=== PATIENT | female | born 1935 | race Caucasian/White ===

== ENCOUNTER 2018-08-13 14:55 | Inpatient (IN) ==
[2018-08-13] MEDS: Aspirin Enteric Coated 81 MG Tablet PO SCH (18:02)
[2018-08-13] MEDS: *HR* OxyCODONE/APAP 5/325 TABLET PO PRN ×2 (18:03→22:30)
[2018-08-14 05:44] LABS: Basophils % 0.4 %; Eosinophils # 0.2 K/mcL (0.0-0.6); Eosinophils % 3.9 %; Hematocrit 27.4 % (35.3-44.9); Hemoglobin 8.8 g/dL (11.5-15.4); Immature Granulocytes % 0.4 % (0-4); Lymphocytes # 1.3 K/mcL (0.6-4.6); Lymphocytes % 26.7 %; Mean Corpuscular HGB Conc 32.1 g/dL (31.6-35.5); Mean Corpuscular Volume 87.3 fL (83.0-100.0); Mean Platelet Volume 8.8 fL (9.4-12.4); Monocytes # 0.4 K/mcL (0.0-1.3); Monocytes % 7.9 %; Neutrophils # 2.9 K/mcL (1.6-8.9); Platelet Count 232 K/mcL (140-400); Red Blood Count 3.14 M/mcL (3.82-4.97); Red Cell Distribution Width 14.2 % (11.5-14.5); Segmented Neutrophils % 60.7 %; White Blood Count 4.8 K/mcL (4.3-11.1)
[2018-08-14 05:48] LABS: INR 1.1; Prothrombin Time 12.3 Seconds (9.4-12.1)
[2018-08-14 05:51] LABS: Activated Partial Thrombo Time 29.8 Seconds (26.0-36.0)
[2018-08-14] MEDS: *HR* OxyCODONE/APAP 5/325 TABLET PO PRN ×3 (06:42→21:28)
[2018-08-14] MEDS: Levothyroxine 25 MCG TABLET PO SCH (06:42)
[2018-08-14] MEDS: carBAMazepine 200 MG TABLET PO SCH (08:02)
[2018-08-14] MEDS: Isosorbide MONOnitrate (24 HR) 60 MG TAB.ER.24H PO SCH (11:45)
[2018-08-14] MEDS: Aspirin Enteric Coated 81 MG Tablet PO SCH (16:10)
--- NOTE | 2018-08-14 17:19 | Internal Med History&Physical ---
Date of Encounter: 08/14/18 Time of Encounter: 16:45 Assessment and Plan (1) Recurrent falls Current visit: No Status: Acute PT and OT evaluation with ongoing intervention will be done. (2) CAD (coronary artery disease) Current visit: No Status: Chronic Continue aspirin, Plavix, and metoprolol Qualifiers: Coronary Disease-Associated Artery/Lesion type: [place] artery [place] vs. transplanted heart: [place] heart Associated angina: without angina Qualified Code(s): I25.10 - Atherosclerotic heart disease of [place] coronary artery without angina pectoris (3) CKD (chronic kidney disease) stage 3, GFR 30-59 ml/min Current visit: No Status: Chronic Monitor renal indices. (4) Hypothyroidism Current visit: No Status: Chronic TSH was normal at 1.105 on 08/09/2018. Continue present dose Synthroid. Qualifiers: Hypothyroidism type: unspecified Qualified Code(s): E03.9 - Hypothyroidism, unspecified (5) Anemia Current visit: No Status: Chronic Anemia testing will be ordered. I explained to her that chronic kidney disease is likely significantly contributing Qualifiers: Anemia type: unspecified type Qualified Code(s): D64.9 - Anemia, unspecified (6) Hypertension Current visit: No Status: Chronic Continue metoprolol. Qualifiers: Hypertension type: essential hypertension Qualified Code(s): I10 - Essential (primary) hypertension Internal Medicine - H&P: HPI Chief complaint: Left hip hematoma Admitted From: Hospital to Hospital Transfer Plans for Post Hospital Care: Home History of present illness: Ms. Gilbert is a 83 year old female who was discharged to [facility] swing bed after a August 09 [facility] stay following a fall at home. She sustained a left superficial parietal hematoma and left thigh hematoma. She was treated nonsurgically. She was discharged to swing bed for rehabilitation therapy prior to returning to independent living. She states she does not use a cane or walker on ambulation. She reports 4 falls over the last 18 months. She sustained a left humerus fracture at the time of the first fall January 2017. She had previous left total shoulder replacement 2009. Orthopedic history is significant otherwise for bilateral carpal tunnel surgery repair remotely. She denies gout or other bone joint or muscle disorders. She reports the 2 most recent falls were due to slipping/stumbling with her feet or balance loss on turning. Past Med Surg Social Fam HX - Past Medical History Medical history: atrial fibrillation, coronary artery disease, GERD, hyperlipidemia, hypertension, myocardial infarction, seizures, thyroid disease, other Additional medical history: Patient states it has been many years since last seizure. Psychiatric history: depression - Past Surgical History Surgical History: angioplasty/stent, appendectomy, cataract, cholecystectomy, hysterectomy, orthopedic, other, sinus surgery, other Additional surgical history: Left humerus fx with ORIF - Social History Smoking Status: Never smoker Smokeless Tobacco Status: No Alcohol use: none Drug use: none - Family History Father Adopted: No Family Member Ethnicity: Non- Living Status: Hx Family Neurologic Disorders: Yes (Parkinson's disease) Brother Family Member Ethnicity: Non- Living Status: Hx Family Cardiac Disorders: Yes ([place], CVA) Sister Family Member Ethnicity: Non- Living Status: Hx Family Cardiac Disorders: Yes (CVA, CAD, HTN) Mother Adopted: No Family Member Ethnicity: Non- Living Status: Hx Family Cardiac Disorders: Yes Hx Family Endocrine Disorder: Yes (DM T2) Internal Medicine - H&P: Meds Aspirin [Lo-Dose Aspirin EC] 81 mg PO 1600 08/09/18 [History] Clopidogrel [Plavix] 75 mg PO DAILY 08/09/18 [History] Isosorbide MONOnitrate [Isosorbide Mononitrate ER] 120 mg PO 1200 08/09/18 [History] Levothyroxine [Synthroid] 50 mcg PO DAILY 08/09/18 [History] Metoprolol Tartrate [Lopressor] 25 mg PO BID 08/09/18 [History] Omeprazole [PriLOSEC] 20 mg PO 1200 08/09/18 [History] carBAMazepine [CarBAMazepine] 100 mg PO QAM 08/09/18 [History] Allergy/AdvReac Type Severity Reaction Status Date / Time esomeprazole [From Nexium] AdvReac Chest Pain Verified 08/09/18 12:48 hydromorphone [From Dilaudid] AdvReac Vomiting Verified 08/09/18 12:48 iron AdvReac Vomiting Verified 08/09/18 12:48 All Systems PM: A 10-system review of systems was performed and is negative for pertinent findings except as documented above in the HPI. Review of systems: Gen.: She states her weight has increased approximately 20 pounds in the past year due to diet changes Cardiovascular: She has history of hypertension. She has known ASHD with LAD stent placed at her most recent heart catheter August 2017. She reports a previous stent had to be replaced but does not know details of the vessel location. She denies known heart failure. Limited echocardiogram 07/21/2017 showed LVEF of 60%. Interventricular septum and posterior wall thickness measurements were normal at 0.90 cm each. Previous echocardiogram 02/06/2017 showed no significant valvular abnormalities. The E/A ratio was 0.6. Respiratory: She is a lifelong nonsmoker and denies chronic lung disease GI: She has had cholecystectomy. 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 She denies other kidney or bladder disorders. Neurologic: She reports being told that she possibly had a stroke. Head CT 08/09/2018 showed periventricular chronic microvascular ischemic changes. She denies seizures. Endocrine: She denies diabetes. She has hypothyroidism and hyperlipidemia. Hematology/oncology: She has anemia on most labs since March 2014. She was unaware of this. She denies internal malignancies or other blood disorders. Psychiatric: She denies anxiety depression or other mental health issues [place] skeletal: As per history of present illness - Constitutional Vitals: Temp Pulse Resp BP Pulse Ox 98.3 F 86 16 140/76 94 08/14/18 07:53 08/14/18 07:53 08/14/18 07:53 08/14/18 07:53 08/14/18 07:53 Exam: Gen.: She is a well-developed well-nourished female resting comfortably in bed who appears in no acute distress HEENT: She has a resolving hematoma in the left posterior parietal area. Eyes: EOMI. There is no scleral icterus. Mouth: Mucosa is moist. Neck: Supple and nontender. There is no thyromegaly or adenopathy noted. Heart: Regular without murmurs gallops or ectopics Lungs: No wheezes or crackles are heard. Abdomen: Soft and nontender. No masses or guarding are noted. Extremity is: She has a large hematoma with surrounding ecchymosis in the left upper lateral thigh area. She has ecchymoses on the dorsum of the hands and her left elbow area. There is no cyanosis edema or clubbing noted of her feet. Dorsalis pedis and posterior tibial pulses are 1-2 over 2 bilaterally. Neurologic: Mental status: She is talkative and a good historian. Cranial nerves: Smile is symmetric. Forehead wrinkles bilaterally. Tongue protrudes midline. EOMI. Motor: There is no pronator drift. Cerebellar: Finger to nose is intact bilaterally. Skin: Warm and dry Internal Med - H&P Results - Labs CBC & Chem 7: 08/14/18 04:41 08/14/18 04:41 Labs: Short CBC 08/14/18 Range/Units 04:41 WBC 4.8 (4.3-11.1) K/mcL Hgb 8.8 L (11.5-15.4) g/dL Hct 27.4 L (35.3-44.9) % Plt Count 232 (140-400) K/mcL Neutrophils # 2.9 (1.6-8.9) K/mcL BMP 08/14/18 04:41 Sodium 137 Potassium 4.0 Chloride 103 Carbon Dioxide 26 BUN 15 Creatinine 1.18 Glucose 91 Calcium 9.0
[2018-08-15] MEDS: *HR* OxyCODONE/APAP 5/325 TABLET PO PRN ×2 (04:07→19:59)
[2018-08-15] MEDS: Levothyroxine 25 MCG TABLET PO SCH (06:48)
[2018-08-15 09:09] LABS: % Iron Saturation 18 % (15-50); Iron 51 mcg/dL (50-170); Transferrin 200 mg/dL (203-362)
[2018-08-15 09:26] LABS: Ferritin 128 ng/mL (10-120)
[2018-08-15 09:29] LABS: Folate 14.7 ng/mL (3.0-16.0)
[2018-08-15] MEDS: carBAMazepine 200 MG TABLET PO SCH (09:54)
[2018-08-15] MEDS: Aspirin Enteric Coated 81 MG Tablet PO SCH (15:27)
[2018-08-15] MEDS: Isosorbide MONOnitrate (24 HR) 60 MG TAB.ER.24H PO SCH (15:27)
--- NOTE | 2018-08-15 15:35 | Internal Med Progress Note ---
Date of Encounter: 08/15/18 Time of Encounter: 15:25 - Assessment and plan (1) Recurrent falls Current Visit: No Status: Acute Assessment and plan: August 15. Continue PT and OT intervention. (2) CAD (coronary artery disease) Current Visit: No Status: Chronic Assessment and plan: August 15. Continue aspirin, Plavix, and metoprolol Qualifiers: Coronary Disease-Associated Artery/Lesion type: [place] artery [place] vs. transplanted heart: [place] heart Associated angina: without angina Qualified Code(s): I25.10 - Atherosclerotic heart disease of [place] coronary artery without angina pectoris (3) CKD (chronic kidney disease) stage 3, GFR 30-59 ml/min Current Visit: No Status: Chronic Assessment and plan: August 15. Monitor renal indices. (4) Hypothyroidism Current Visit: No Status: Chronic Assessment and plan: August 15. Continue Synthroid Qualifiers: Hypothyroidism type: unspecified Qualified Code(s): E03.9 - Hypothyroidism, unspecified (5) Anemia Current Visit: No Status: Chronic Assessment and plan: August 15. Anemia testing showed iron 51, transferrin saturation 18%, transferrin 200, ferritin 128, B12 272, and folate 14.7. MMA will be checked. Likely primarily due to chronic kidney disease. Qualifiers: Anemia type: unspecified type Qualified Code(s): D64.9 - Anemia, unspecified (6) Hypertension Current Visit: No Status: Chronic Assessment and plan: August 15. Continue metoprolol. Qualifiers: Hypertension type: essential hypertension Qualified Code(s): I10 - Essential (primary) hypertension - Subjective Interval history: August 15. She has no new complaints except constipation. - Constitutional Vitals: Temp Pulse Resp BP Pulse Ox 98.1 F 85 14 137/72 95 08/15/18 06:34 08/15/18 06:34 08/15/18 06:34 08/15/18 06:34 08/15/18 06:34 Exam: She is resting comfortably in bed and appears in no acute distress. Her affect is bright and cheerful. I reviewed her medications and lab results. Internal Medicine: Result - Labs CBC & Chem 7: 08/14/18 04:41 08/14/18 04:41 - ABG Interpretation ABG results: PT/INR, D-dimer PT 12.3 Seconds (9.4-12.1) H 08/14/18 04:41 Consult Discharge Plan - Plan Referrals: Ronald Faith Jr, MD [Primary Care Provider] - 1 week
[2018-08-16] MEDS: Levothyroxine 25 MCG TABLET PO SCH (05:56)
[2018-08-16] MEDS: *HR* OxyCODONE/APAP 5/325 TABLET PO PRN ×2 (05:56→20:12)
[2018-08-16] MEDS: carBAMazepine 200 MG TABLET PO SCH (08:12)
[2018-08-16] MEDS: Isosorbide MONOnitrate (24 HR) 60 MG TAB.ER.24H PO SCH (11:48)
[2018-08-16] MEDS: MOM Conc 10 ML UD.LIQ PO SCH (11:48)
[2018-08-16] MEDS ORDERED: *HR* FentaNYL PATCH 12 MCG PATCH TD SCH (12:00)
[2018-08-16] MEDS: Aspirin Enteric Coated 81 MG Tablet PO SCH (16:07)
[2018-08-17] MEDS: Levothyroxine 25 MCG TABLET PO SCH (05:56)
[2018-08-17] MEDS: carBAMazepine 200 MG TABLET PO SCH (08:47)
[2018-08-17] MEDS: Isosorbide MONOnitrate (24 HR) 60 MG TAB.ER.24H PO SCH (12:59)
[2018-08-17] MEDS: Aspirin Enteric Coated 81 MG Tablet PO SCH (18:23)
[2018-08-18] MEDS: *HR* OxyCODONE/APAP 5/325 TABLET PO PRN (00:08)
[2018-08-18] MEDS: Levothyroxine 25 MCG TABLET PO SCH (06:55)
[2018-08-18 07:08] VITALS: BP 113/74
[2018-08-18] MEDS: carBAMazepine 200 MG TABLET PO SCH (10:04)
--- NOTE | 2018-08-18 11:34 | Discharge Summary ---
Orders not resulted at time of discharge: Pending orders 08/15/18 16:08 MMA (VIT B12 STATUS) Routine Date of Encounter: 08/18/18 Time of Encounter: 11:25 - Discharge Diagnosis (1) Recurrent falls Priority: Primary Status: Acute (2) Hematoma of left hip Priority: Secondary Status: Acute Qualifiers: Encounter type: subsequent encounter Qualified Code(s): S70.02XD - Contusion of left hip, subsequent encounter (3) CAD (coronary artery disease) Priority: Secondary Status: Chronic Qualifiers: Coronary Disease-Associated Artery/Lesion type: [place] artery [place] vs. transplanted heart: [place] heart Associated angina: without angina Qualified Code(s): I25.10 - Atherosclerotic heart disease of [place] coronary artery without angina pectoris (4) CKD (chronic kidney disease) stage 3, GFR 30-59 ml/min Priority: Secondary Status: Chronic (5) Hypothyroidism Priority: Secondary Status: Chronic Qualifiers: Hypothyroidism type: unspecified Qualified Code(s): E03.9 - Hypothyroidism, unspecified (6) Anemia Priority: Secondary Status: Chronic Qualifiers: Anemia type: unspecified type Qualified Code(s): D64.9 - Anemia, unspecified (7) Hypertension Priority: Secondary Status: Chronic Qualifiers: Hypertension type: essential hypertension Qualified Code(s): I10 - Essential (primary) hypertension Hospital course: Ms. Gilbert is a 83 year old female who was discharged to [facility] swing bed after a August 09 [facility] stay following a fall at home. She sustained a left superficial parietal hematoma and left thigh hematoma. She was treated nonsurgically. She was discharged to swing bed for rehabilitation therapy prior to returning to in dependent living. Initial orders were written by the discharging physicians at [facility]. I saw her on August 14 and performed the swing bed history and physical. She had physical therapy and occupational therapy evaluation with ongoing intervention. She made satisfactory progress. There were no complications and on August 18 she was stable for discharge home. She will continue with therapy as an outpatient. Anemia testing showed iron 51, transferrin saturation 18%, transferrin 200, ferritin 128, B12 272, and folate 14.7. MMA was ordered to further evaluate her B12 status and is pending at time of discharge. Her PCP can follow up on this. She will follow with her PCP Dr. Ronald Faith within 1 week. - Time Spent with Patient Total time spent providing and/or coordinating discharge services: - Discharge Medications Prescriptions: Continued Omeprazole [PriLOSEC] 20 mg PO 1200 Clopidogrel [Plavix] 75 mg PO DAILY Metoprolol Tartrate [Lopressor] 25 mg PO BID Levothyroxine [Synthroid] 50 mcg PO DAILY Isosorbide MONOnitrate [Isosorbide Mononitrate ER] 120 mg PO 1200 Aspirin [Lo-Dose Aspirin EC] 81 mg PO 1600 carBAMazepine [CarBAMazepine] 100 mg PO QAM Home Medications: Aspirin [Lo-Dose Aspirin EC] 81 mg PO 1600 08/09/18 [History] Clopidogrel [Plavix] 75 mg PO DAILY 08/09/18 [History] Isosorbide MONOnitrate [Isosorbide Mononitrate ER] 120 mg PO 1200 08/09/18 [History] Levothyroxine [Synthroid] 50 mcg PO DAILY 08/09/18 [History] Metoprolol Tartrate [Lopressor] 25 mg PO BID 08/09/18 [History] Omeprazole [PriLOSEC] 20 mg PO 1200 08/09/18 [History] carBAMazepine [CarBAMazepine] 100 mg PO QAM 08/09/18 [History] Allergies/Adverse Reactions: Allergy/AdvReac Type Severity Reaction Status Date / Time esomeprazole [From Nexium] AdvReac Chest Pain Verified 08/09/18 12:48 hydromorphone [From Dilaudid] AdvReac Vomiting Verified 08/09/18 12:48 iron AdvReac Vomiting Verified 08/09/18 12:48 Date of admission: 08/13/18 15:30 Primary care physician: Ronald Faith Jr, MD Consults: 08/13/18 15:13 Consult to Occupational Therapy [CONS] Routine Comment: eval, develop, implement POC Reason for Consult: eval, develop, implement POC Does patient have active BEDREST order?: No Is patient medically & hemodynamically stable?: Yes Consult to Physical Therapy [CONS] Routine Comment: eval, develop, implement POC Reason for Consult: eval, develop, implement POC Does patient have active BEDREST order?: No Is patient medically & hemodynamically stable?: Yes Consult to [employer] [CONS] Routine Reason for SW Consult: may need HH upon discharge - Constitutional Vitals: Temp Pulse Resp BP Pulse Ox 97.5 F L 78 18 113/74 98 08/18/18 06:59 08/18/18 06:59 08/18/18 06:59 08/18/18 06:59 08/18/18 06:59 - Patient Status Disposition: Home, Self-Care Functional capacity at discharge: uses cane/walker - Discharge Instructions Follow Up With: Ronald Faith Jr, MD [Primary Care Provider] - 1 week - Diet and Activity Activity: as per physical therapy Diet: advance to your usual diet
[2018-08-18] MEDS: Isosorbide MONOnitrate (24 HR) 60 MG TAB.ER.24H PO SCH (12:39)
[2018-08-18] MEDS: MOM Conc 10 ML UD.LIQ PO SCH (12:40)
== END 2018-08-18 15:55 | disposition home or self-care (01) | DRG 605 ==
LOC: INPPIK 15:30
PROVIDERS: ADMIT Internal Medicine; ATTEND Internal Medicine

== ENCOUNTER 2019-05-04 09:42 | Inpatient (IN) ==
[2019-05-04] MEDS ORDERED: cloNIDine HCl 0.1 MG TABLET PO ONE (23:22)
[2019-05-05] MEDS: *HR* OxyCODONE/APAP 5/325 TABLET PO SCH ×2 (00:01→21:55)
[2019-05-05] MEDS: Latanoprost 2.5 ML BOTTLE LEFT EYE SCH ×2 (00:01→21:53)
[2019-05-05] MEDS: PrednisoLONE Acetate 1% Opth 5 ML BOTTLE LEFT EYE SCH ×5 (00:01→21:55)
[2019-05-05] MEDS: Levothyroxine 25 MCG TABLET PO SCH (05:34)
[2019-05-05 07:13] LABS: Potassium 4.3 mEq/L (3.5-5.1)
[2019-05-05] MEDS: carBAMazepine 200 MG TABLET PO SCH (08:40)
[2019-05-05] MEDS: Isosorbide MONOnitrate (24 HR) 60 MG TAB.ER.24H PO SCH (08:40)
[2019-05-05] MEDS: Aspirin 81 MG TAB.CHEW PO SCH (08:41)
[2019-05-05] MEDS: Ketorolac OPTH Soln 5 ML BOTTLE LEFT EYE SCH ×4 (08:42→21:57)
[2019-05-05] MEDS: Dorzolamide/Timolol OPTH 10 ML BOTTLE LEFT EYE SCH ×3 (09:44→21:57)
[2019-05-06] MEDS: Levothyroxine 25 MCG TABLET PO SCH (06:52)
[2019-05-06] MEDS: Ketorolac OPTH Soln 5 ML BOTTLE LEFT EYE SCH ×3 (08:36→20:22)
[2019-05-06] MEDS: Aspirin 81 MG TAB.CHEW PO SCH (08:37)
[2019-05-06] MEDS: Isosorbide MONOnitrate (24 HR) 60 MG TAB.ER.24H PO SCH (08:37)
[2019-05-06] MEDS: carBAMazepine 200 MG TABLET PO SCH (08:37)
[2019-05-06] MEDS: Dorzolamide/Timolol OPTH 10 ML BOTTLE LEFT EYE SCH ×2 (08:41→20:23)
[2019-05-06] MEDS: PrednisoLONE Acetate 1% Opth 5 ML BOTTLE LEFT EYE SCH ×4 (08:41→20:21)
[2019-05-06] MEDS: Acetaminophen/Butalbital/CaffeineTABLET PO PRN (08:48)
[2019-05-06] MEDS: *HR* OxyCODONE/APAP 5/325 TABLET PO SCH (20:20)
[2019-05-06] MEDS: Latanoprost 2.5 ML BOTTLE LEFT EYE SCH (20:22)
[2019-05-06] MEDS: Sucralfate 1 GM TABLET PO SCH (21:14)
[2019-05-07] MEDS: Levothyroxine 25 MCG TABLET PO SCH (06:23)
[2019-05-07] MEDS: Aspirin 81 MG TAB.CHEW PO SCH (09:42)
[2019-05-07] MEDS: Isosorbide MONOnitrate (24 HR) 60 MG TAB.ER.24H PO SCH (09:42)
[2019-05-07] MEDS: Sucralfate 1 GM TABLET PO SCH ×4 (09:42→20:35)
[2019-05-07] MEDS: carBAMazepine 200 MG TABLET PO SCH (09:42)
[2019-05-07] MEDS: Dorzolamide/Timolol OPTH 10 ML BOTTLE LEFT EYE SCH ×2 (09:43→20:37)
[2019-05-07] MEDS: PrednisoLONE Acetate 1% Opth 5 ML BOTTLE LEFT EYE SCH ×4 (09:44→20:38)
[2019-05-07] MEDS: Ketorolac OPTH Soln 5 ML BOTTLE LEFT EYE SCH ×3 (09:44→20:35)
[2019-05-07] MEDS: *HR* OxyCODONE/APAP 5/325 TABLET PO SCH (20:34)
[2019-05-07] MEDS: Latanoprost 2.5 ML BOTTLE LEFT EYE SCH (20:39)
[2019-05-08] MEDS: Levothyroxine 25 MCG TABLET PO SCH (06:23)
[2019-05-08] MEDS: Sucralfate 1 GM TABLET PO SCH ×4 (06:23→22:20)
[2019-05-08] MEDS: Isosorbide MONOnitrate (24 HR) 60 MG TAB.ER.24H PO SCH (09:02)
[2019-05-08] MEDS: carBAMazepine 200 MG TABLET PO SCH (09:03)
[2019-05-08] MEDS: Aspirin 81 MG TAB.CHEW PO SCH (09:03)
[2019-05-08] MEDS: Dorzolamide/Timolol OPTH 10 ML BOTTLE LEFT EYE SCH ×2 (09:04→20:18)
[2019-05-08] MEDS: Ketorolac OPTH Soln 5 ML BOTTLE LEFT EYE SCH ×3 (09:04→20:19)
[2019-05-08] MEDS: PrednisoLONE Acetate 1% Opth 5 ML BOTTLE LEFT EYE SCH ×4 (09:05→20:18)
[2019-05-08] MEDS: Latanoprost 2.5 ML BOTTLE LEFT EYE SCH (20:18)
[2019-05-08] MEDS: *HR* OxyCODONE/APAP 5/325 TABLET PO SCH (20:19)
[2019-05-09] MEDS: Levothyroxine 25 MCG TABLET PO SCH (06:03)
[2019-05-09] MEDS: carBAMazepine 200 MG TABLET PO SCH (09:12)
[2019-05-09] MEDS: Sucralfate 1 GM TABLET PO SCH ×4 (09:13→22:35)
[2019-05-09] MEDS: Aspirin 81 MG TAB.CHEW PO SCH (09:13)
[2019-05-09] MEDS: Isosorbide MONOnitrate (24 HR) 60 MG TAB.ER.24H PO SCH (09:13)
[2019-05-09] MEDS: Ketorolac OPTH Soln 5 ML BOTTLE LEFT EYE SCH ×3 (09:16→22:30)
[2019-05-09] MEDS: Dorzolamide/Timolol OPTH 10 ML BOTTLE LEFT EYE SCH ×2 (09:17→22:29)
[2019-05-09] MEDS: PrednisoLONE Acetate 1% Opth 5 ML BOTTLE LEFT EYE SCH ×4 (09:17→22:29)
[2019-05-09] MEDS: *HR* OxyCODONE/APAP 5/325 TABLET PO SCH (22:27)
[2019-05-09] MEDS: Latanoprost 2.5 ML BOTTLE LEFT EYE SCH (22:30)
[2019-05-10] MEDS: Levothyroxine 25 MCG TABLET PO SCH (06:47)
[2019-05-10] MEDS: Aspirin 81 MG TAB.CHEW PO SCH (09:41)
[2019-05-10] MEDS: Sucralfate 1 GM TABLET PO SCH ×4 (09:41→22:39)
[2019-05-10] MEDS: Acetaminophen/Butalbital/CaffeineTABLET PO PRN ×2 (09:41→18:27)
[2019-05-10] MEDS: Isosorbide MONOnitrate (24 HR) 60 MG TAB.ER.24H PO SCH (09:41)
[2019-05-10] MEDS: carBAMazepine 200 MG TABLET PO SCH (09:42)
[2019-05-10] MEDS: Dorzolamide/Timolol OPTH 10 ML BOTTLE LEFT EYE SCH ×2 (09:43→21:36)
[2019-05-10] MEDS: PrednisoLONE Acetate 1% Opth 5 ML BOTTLE LEFT EYE SCH ×4 (09:44→21:36)
[2019-05-10] MEDS: Ketorolac OPTH Soln 5 ML BOTTLE LEFT EYE SCH ×3 (09:44→21:37)
[2019-05-10] MEDS: *HR* OxyCODONE/APAP 5/325 TABLET PO SCH (21:34)
[2019-05-10] MEDS: Latanoprost 2.5 ML BOTTLE LEFT EYE SCH (21:36)
[2019-05-11] MEDS: Levothyroxine 25 MCG TABLET PO SCH (06:37)
[2019-05-11] MEDS: Isosorbide MONOnitrate (24 HR) 60 MG TAB.ER.24H PO SCH (07:30)
[2019-05-11] MEDS: Sucralfate 1 GM TABLET PO SCH ×4 (07:30→21:20)
[2019-05-11] MEDS: Aspirin 81 MG TAB.CHEW PO SCH (07:30)
[2019-05-11] MEDS: carBAMazepine 200 MG TABLET PO SCH (07:30)
[2019-05-11] MEDS: Dorzolamide/Timolol OPTH 10 ML BOTTLE LEFT EYE SCH ×2 (07:32→21:22)
[2019-05-11] MEDS: Ketorolac OPTH Soln 5 ML BOTTLE LEFT EYE SCH ×3 (07:33→21:23)
[2019-05-11] MEDS: PrednisoLONE Acetate 1% Opth 5 ML BOTTLE LEFT EYE SCH ×4 (07:34→21:24)
[2019-05-11] MEDS ORDERED: Sennosides/Docusate Sodium TABLET PO PRN (14:10)
[2019-05-11] MEDS: *HR* OxyCODONE/APAP 5/325 TABLET PO SCH (21:20)
[2019-05-11] MEDS: Latanoprost 2.5 ML BOTTLE LEFT EYE SCH (21:24)
[2019-05-12] MEDS: Sucralfate 1 GM TABLET PO SCH ×4 (06:12→20:18)
[2019-05-12] MEDS: Levothyroxine 25 MCG TABLET PO SCH (06:12)
[2019-05-12] MEDS: Ketorolac OPTH Soln 5 ML BOTTLE LEFT EYE SCH ×3 (09:21→19:56)
[2019-05-12] MEDS: carBAMazepine 200 MG TABLET PO SCH (09:21)
[2019-05-12] MEDS: Isosorbide MONOnitrate (24 HR) 60 MG TAB.ER.24H PO SCH (09:23)
[2019-05-12] MEDS: Aspirin 81 MG TAB.CHEW PO SCH (09:23)
[2019-05-12] MEDS: PrednisoLONE Acetate 1% Opth 5 ML BOTTLE LEFT EYE SCH ×4 (09:28→19:55)
[2019-05-12] MEDS: Dorzolamide/Timolol OPTH 10 ML BOTTLE LEFT EYE SCH ×2 (09:35→19:55)
[2019-05-12] MEDS: Acetaminophen/Butalbital/CaffeineTABLET PO PRN (15:43)
[2019-05-12] MEDS: *HR* OxyCODONE/APAP 5/325 TABLET PO SCH (19:54)
[2019-05-12] MEDS: Latanoprost 2.5 ML BOTTLE LEFT EYE SCH (19:55)
[2019-05-13] MEDS: Levothyroxine 25 MCG TABLET PO SCH (05:05)
[2019-05-13] MEDS: Sucralfate 1 GM TABLET PO SCH ×4 (08:29→20:50)
[2019-05-13] MEDS: carBAMazepine 200 MG TABLET PO SCH (08:29)
[2019-05-13] MEDS: Aspirin 81 MG TAB.CHEW PO SCH (08:30)
[2019-05-13] MEDS: Isosorbide MONOnitrate (24 HR) 60 MG TAB.ER.24H PO SCH (08:30)
[2019-05-13] MEDS: Ketorolac OPTH Soln 5 ML BOTTLE LEFT EYE SCH ×3 (08:30→20:49)
[2019-05-13] MEDS: Dorzolamide/Timolol OPTH 10 ML BOTTLE LEFT EYE SCH ×2 (08:34→20:49)
[2019-05-13] MEDS: PrednisoLONE Acetate 1% Opth 5 ML BOTTLE LEFT EYE SCH ×4 (08:34→20:49)
[2019-05-13] MEDS: *HR* OxyCODONE/APAP 5/325 TABLET PO SCH (20:47)
[2019-05-13] MEDS: Latanoprost 2.5 ML BOTTLE LEFT EYE SCH (20:49)
[2019-05-14] MEDS: Levothyroxine 25 MCG TABLET PO SCH (06:00)
[2019-05-14] MEDS: Sucralfate 1 GM TABLET PO SCH ×4 (08:16→20:33)
[2019-05-14] MEDS: Isosorbide MONOnitrate (24 HR) 60 MG TAB.ER.24H PO SCH (08:16)
[2019-05-14] MEDS: carBAMazepine 200 MG TABLET PO SCH (08:17)
[2019-05-14] MEDS: PrednisoLONE Acetate 1% Opth 5 ML BOTTLE LEFT EYE SCH ×4 (08:20→20:35)
[2019-05-14] MEDS: Ketorolac OPTH Soln 5 ML BOTTLE LEFT EYE SCH ×3 (08:20→20:34)
[2019-05-14] MEDS: Dorzolamide/Timolol OPTH 10 ML BOTTLE LEFT EYE SCH ×2 (08:22→20:35)
[2019-05-14] MEDS: Aspirin 81 MG TAB.CHEW PO SCH (08:26)
[2019-05-14] MEDS: *HR* OxyCODONE/APAP 5/325 TABLET PO SCH (20:33)
[2019-05-14] MEDS: Latanoprost 2.5 ML BOTTLE LEFT EYE SCH (20:35)
[2019-05-15] MEDS: Levothyroxine 25 MCG TABLET PO SCH (06:08)
[2019-05-15] MEDS: Aspirin 81 MG TAB.CHEW PO SCH (09:17)
[2019-05-15] MEDS: carBAMazepine 200 MG TABLET PO SCH (09:17)
[2019-05-15] MEDS: Sucralfate 1 GM TABLET PO SCH ×4 (09:17→21:47)
[2019-05-15] MEDS: Ketorolac OPTH Soln 5 ML BOTTLE LEFT EYE SCH ×3 (09:17→21:48)
[2019-05-15] MEDS: Isosorbide MONOnitrate (24 HR) 60 MG TAB.ER.24H PO SCH (09:17)
[2019-05-15] MEDS: Dorzolamide/Timolol OPTH 10 ML BOTTLE LEFT EYE SCH ×2 (09:19→21:49)
[2019-05-15] MEDS: PrednisoLONE Acetate 1% Opth 5 ML BOTTLE LEFT EYE SCH ×4 (09:19→21:49)
[2019-05-15] MEDS: *HR* OxyCODONE/APAP 5/325 TABLET PO SCH (21:46)
[2019-05-15] MEDS: Latanoprost 2.5 ML BOTTLE LEFT EYE SCH (21:49)
[2019-05-16] MEDS: Levothyroxine 25 MCG TABLET PO SCH (06:10)
[2019-05-16] MEDS: Isosorbide MONOnitrate (24 HR) 60 MG TAB.ER.24H PO SCH (07:43)
[2019-05-16] MEDS: Sucralfate 1 GM TABLET PO SCH ×4 (07:43→21:30)
[2019-05-16] MEDS: Aspirin 81 MG TAB.CHEW PO SCH (07:43)
[2019-05-16] MEDS: carBAMazepine 200 MG TABLET PO SCH (07:43)
[2019-05-16] MEDS: Dorzolamide/Timolol OPTH 10 ML BOTTLE LEFT EYE SCH ×2 (07:45→21:31)
[2019-05-16] MEDS: Ketorolac OPTH Soln 5 ML BOTTLE LEFT EYE SCH ×3 (07:45→21:31)
[2019-05-16] MEDS: PrednisoLONE Acetate 1% Opth 5 ML BOTTLE LEFT EYE SCH ×4 (07:46→21:30)
[2019-05-16] MEDS ORDERED: *HR* OxyCODONE/APAP 5/325 TABLET PO ONE (14:40)
[2019-05-16] MEDS: *HR* OxyCODONE/APAP 5/325 TABLET PO SCH (21:30)
[2019-05-16] MEDS: Latanoprost 2.5 ML BOTTLE LEFT EYE SCH (21:31)
[2019-05-17] MEDS: Levothyroxine 25 MCG TABLET PO SCH (06:20)
[2019-05-17] MEDS: Sucralfate 1 GM TABLET PO SCH ×4 (07:50→22:20)
[2019-05-17] MEDS: Isosorbide MONOnitrate (24 HR) 60 MG TAB.ER.24H PO SCH (07:50)
[2019-05-17] MEDS: Aspirin 81 MG TAB.CHEW PO SCH (07:50)
[2019-05-17] MEDS: carBAMazepine 200 MG TABLET PO SCH (07:50)
[2019-05-17] MEDS: Ketorolac OPTH Soln 5 ML BOTTLE LEFT EYE SCH ×3 (09:26→19:31)
[2019-05-17] MEDS: PrednisoLONE Acetate 1% Opth 5 ML BOTTLE LEFT EYE SCH ×4 (09:27→19:34)
[2019-05-17] MEDS: Dorzolamide/Timolol OPTH 10 ML BOTTLE LEFT EYE SCH ×2 (09:27→19:33)
[2019-05-17] MEDS: Latanoprost 2.5 ML BOTTLE LEFT EYE SCH (19:35)
[2019-05-17] MEDS: *HR* OxyCODONE/APAP 5/325 TABLET PO SCH (22:20)
[2019-05-18] MEDS: Levothyroxine 25 MCG TABLET PO SCH (06:24)
[2019-05-18 06:47] LABS: Hematocrit 35.2 % (35.3-44.9); Hemoglobin 11.6 g/dL (11.5-15.4); Mean Corpuscular Hemoglobin 27.6 pg (28.0-33.3); Mean Corpuscular Volume 83.8 fL (83.0-100.0); Mean Platelet Volume 8.8 fL (9.4-12.4); Platelet Count 241 K/mcL (140-400); Red Cell Distribution Width 13.2 % (11.5-14.5); White Blood Count 4.9 K/mcL (4.3-11.1)
[2019-05-18 07:11] LABS: Calcium 9.1 mg/dL (8.6-10.3)
[2019-05-18] MEDS: Sucralfate 1 GM TABLET PO SCH ×4 (09:37→20:09)
[2019-05-18] MEDS: carBAMazepine 200 MG TABLET PO SCH (09:37)
[2019-05-18] MEDS: Aspirin 81 MG TAB.CHEW PO SCH (09:37)
[2019-05-18] MEDS: Isosorbide MONOnitrate (24 HR) 60 MG TAB.ER.24H PO SCH (09:37)
[2019-05-18] MEDS: Ketorolac OPTH Soln 5 ML BOTTLE LEFT EYE SCH ×3 (09:38→20:08)
[2019-05-18] MEDS: PrednisoLONE Acetate 1% Opth 5 ML BOTTLE LEFT EYE SCH ×4 (09:38→20:08)
[2019-05-18] MEDS: Dorzolamide/Timolol OPTH 10 ML BOTTLE LEFT EYE SCH ×2 (09:38→20:08)
[2019-05-18] MEDS: *HR* OxyCODONE/APAP 5/325 TABLET PO SCH (20:07)
[2019-05-18] MEDS: Latanoprost 2.5 ML BOTTLE LEFT EYE SCH (20:09)
[2019-05-19] MEDS: Levothyroxine 25 MCG TABLET PO SCH (05:42)
[2019-05-19] MEDS: Aspirin 81 MG TAB.CHEW PO SCH (07:34)
[2019-05-19] MEDS: Sucralfate 1 GM TABLET PO SCH ×4 (07:34→20:57)
[2019-05-19] MEDS: Isosorbide MONOnitrate (24 HR) 60 MG TAB.ER.24H PO SCH (07:34)
[2019-05-19] MEDS: carBAMazepine 200 MG TABLET PO SCH (07:34)
[2019-05-19] MEDS: PrednisoLONE Acetate 1% Opth 5 ML BOTTLE LEFT EYE SCH ×4 (07:36→20:58)
[2019-05-19] MEDS: Ketorolac OPTH Soln 5 ML BOTTLE LEFT EYE SCH ×3 (07:36→20:57)
[2019-05-19] MEDS: Dorzolamide/Timolol OPTH 10 ML BOTTLE LEFT EYE SCH ×2 (07:36→20:58)
[2019-05-19] MEDS ORDERED: Furosemide 20 MG TABLET PO ONE (18:05)
[2019-05-19] MEDS: Acetaminophen 325 MG TABLET PO PRN (18:31)
[2019-05-19] MEDS: Latanoprost 2.5 ML BOTTLE LEFT EYE SCH (20:58)
[2019-05-20] MEDS: Levothyroxine 25 MCG TABLET PO SCH (05:17)
[2019-05-20] MEDS: *HR* Enoxaparin 30 MG/0.3 ML SYRINGE SQ SCH (05:31)
[2019-05-20] MEDS: Sucralfate 1 GM TABLET PO SCH ×4 (08:19→21:11)
[2019-05-20] MEDS: carBAMazepine 200 MG TABLET PO SCH (08:20)
[2019-05-20] MEDS: Aspirin 81 MG TAB.CHEW PO SCH (08:20)
[2019-05-20] MEDS: Isosorbide MONOnitrate (24 HR) 60 MG TAB.ER.24H PO SCH (08:20)
[2019-05-20] MEDS: Ketorolac OPTH Soln 5 ML BOTTLE LEFT EYE SCH ×3 (08:26→21:12)
[2019-05-20] MEDS: PrednisoLONE Acetate 1% Opth 5 ML BOTTLE LEFT EYE SCH ×4 (08:27→21:12)
[2019-05-20] MEDS: Dorzolamide/Timolol OPTH 10 ML BOTTLE LEFT EYE SCH ×2 (08:27→21:12)
[2019-05-20] MEDS ORDERED: Famotidine 20 MG TABLET PO SCH (09:00)
[2019-05-20] MEDS ORDERED: *HR* HYDROcodone/Acet 5/325 mg TABLET PO PRN (10:03)
[2019-05-20] MEDS: Latanoprost 2.5 ML BOTTLE LEFT EYE SCH (21:13)
[2019-05-20] MEDS: Acetaminophen 325 MG TABLET PO PRN (21:23)
[2019-05-21] MEDS: Levothyroxine 25 MCG TABLET PO SCH (05:25)
[2019-05-21] MEDS: *HR* Enoxaparin 30 MG/0.3 ML SYRINGE SQ SCH (05:25)
[2019-05-21] MEDS: Isosorbide MONOnitrate (24 HR) 60 MG TAB.ER.24H PO SCH (08:22)
[2019-05-21] MEDS: carBAMazepine 200 MG TABLET PO SCH (08:22)
[2019-05-21] MEDS: Sucralfate 1 GM TABLET PO SCH ×4 (08:22→20:10)
[2019-05-21] MEDS: Famotidine 20 MG TABLET PO SCH (08:23)
[2019-05-21] MEDS: Aspirin 81 MG TAB.CHEW PO SCH (08:23)
[2019-05-21] MEDS: PrednisoLONE Acetate 1% Opth 5 ML BOTTLE LEFT EYE SCH ×4 (08:24→20:06)
[2019-05-21] MEDS: Ketorolac OPTH Soln 5 ML BOTTLE LEFT EYE SCH ×3 (08:24→20:06)
[2019-05-21] MEDS: Dorzolamide/Timolol OPTH 10 ML BOTTLE LEFT EYE SCH ×2 (08:24→20:06)
[2019-05-21] MEDS: Latanoprost 2.5 ML BOTTLE LEFT EYE SCH (20:06)
[2019-05-22] MEDS: *HR* Enoxaparin 30 MG/0.3 ML SYRINGE SQ SCH (05:15)
[2019-05-22] MEDS: Levothyroxine 25 MCG TABLET PO SCH (05:15)
[2019-05-22 07:02] VITALS: BP 123/80
[2019-05-22] MEDS: Sucralfate 1 GM TABLET PO SCH ×3 (09:21→16:32)
[2019-05-22] MEDS: carBAMazepine 200 MG TABLET PO SCH (09:21)
[2019-05-22] MEDS: Aspirin 81 MG TAB.CHEW PO SCH (09:21)
[2019-05-22] MEDS: Famotidine 20 MG TABLET PO SCH (09:22)
[2019-05-22] MEDS: Isosorbide MONOnitrate (24 HR) 60 MG TAB.ER.24H PO SCH (09:22)
[2019-05-22] MEDS: Dorzolamide/Timolol OPTH 10 ML BOTTLE LEFT EYE SCH (09:25)
[2019-05-22] MEDS: PrednisoLONE Acetate 1% Opth 5 ML BOTTLE LEFT EYE SCH ×3 (09:26→16:34)
[2019-05-22] MEDS: Ketorolac OPTH Soln 5 ML BOTTLE LEFT EYE SCH ×2 (09:27→13:58)
[2019-05-22] MEDS: Acetaminophen 325 MG TABLET PO PRN (09:32)
== END 2019-05-22 17:28 | disposition home health service (06) | DRG 57 ==
LOC: SUATTDRO 22:14 → INPPIK 22:14
PROVIDERS: ADMIT Emergency Medicine; ATTEND Family Medicine